=== PATIENT | male | born 1950 | race Caucasian/White ===

== ENCOUNTER 2020-01-07 11:30 | Emergency (ER) | payer OTHER, SELFPAY ==
[2020-01-07 11:36] VITALS: BP 124/67; PULSE 73; RESP 15; TEMP 36.2; O2SAT 100; BMI 23.7
[2020-01-07 12:08] LABS: Alanine Aminotransferase 19 IU/L (<50); Albumin 3.7 g/dL (3.5-5.0); Albumin Globulin Ratio 1.2 (1.0-2.8); Alkaline Phosphatase 58 U/L (38-126); Aspartate Aminotransferase 27 IU/L (17-59); BUN Creatinine Ratio 18.2 (6-22); Bilirubin Total 1.8 mg/dL (0.2-1.3); Blood Urea Nitrogen 10 mg/dL (9-20); Calcium 9.3 mg/dL (8.4-10.2); Carbon Dioxide 30 mmol/L (22-32); Chloride 86 mmol/L (98-107); Estimated Glomerular Filt Rate > 60.0 mL/min (>60); Globulin 3.2 g/dL (1.7-4.1); Glucose 125 mg/dL (80-110); HEMOLYSIS < 15 (0-50); Lipase 41 U/L (23-300); Potassium 3.5 mmol/L (3.4-5.1); Sodium 122 mmol/L (137-145); Total Protein 6.9 g/dL (6.3-8.2)
[2020-01-07 12:09] LABS: Prothrombin Time 11.6 SECONDS (10.1-12.7)
[2020-01-07 12:13] LABS: PTT Partial Thromboplastin Tim 30 SECONDS (26.4-36.2)
[2020-01-07 12:20] LABS: Add Manual Diff / Slide Review NO; Basophils Absolute Auto 100 /uL (0-100); Basophils Percent Auto 0.5 % (0-2); Eosinophils Absolute Auto 0 /uL (0-450); Eosinophils Percent Auto 0.1 % (2-4); Hematocrit 40.3 % (41-53); Hemoglobin 14.2 g/dL (13.5-17.5); Lymphocytes Absolute Auto 700 /uL (1100-4500); Lymphocytes Percent Auto 5.1 % (25-40); Mean Corpuscular HGB Conc 35.3 % (30-36); Mean Corpuscular Hemoglobin 33.8 PG (26-34); Mean Corpuscular Volume 95.7 fL (80-100); Monocytes Absolute Auto 600 /uL (0-900); Monocytes Percent Auto 4.2 % (3-14); Neutrophils Absolute Auto 12200 /uL (1500-7000); Neutrophils Percent Auto 90.1 % (50-75); Platelet Count 306 X10^3/uL (150-400); Red Blood Cell Count 4.21 X10^6/uL (4.5-5.9); Red Cell Distribution Width 13.1 % (11.6-14.8); White Blood Cell Count 13.5 X10^3/uL (4.5-11.0)
[2020-01-07 12:21] LABS: Procalcitonin 0.41 ng/mL (<0.5)
--- NOTE | 2020-01-07 12:51 | ED.SKABFB ---
HPI - Skin/Abscess/Foreign Bdy General Chief complaint: Skin/Abscess/Foreign Body Stated complaint: states left foot in infected Time Seen by Provider: 01/07/20 11:54 Source: patient Mode of arrival: Wheelchair Limitations: no limitations History of Present Illness HPI narrative: 69-year-old gentleman typically followed at the [facility] with a history of asthma, COPD, plaque psoriasis and hypertension presents with 6 days of increasing left pain. States he had severe itch about 6 nights ago he scratched it and the infection started shortly there after. It is becoming increasingly painful. He describes no fevers or chills. No chest pain, dyspnea, abdominal pain. Related Data Previous Rx's Medication Instructions Recorded budesonide-formoterol [Symbicort] 1 inh INH BID #1 inh 04/14/16 hydrochlorothiazide 25 mg PO QDAY #90 04/14/16 propranolol 20 mg PO TID #270 04/14/16 trazodone 50 mg PO QDAY #90 tab 04/14/16 simvastatin 20 mg PO HS #30 tab 09/08/16 amlodipine [Norvasc] 5 mg PO QDAY #90 tab 12/19/16 albuterol sulfate [Ventolin HFA] 1 puff INH QID #3 inh 12/29/16 loratadine 10 mg PO QDAY #30 tab 12/29/16 montelukast [Singulair] 10 mg PO QDAY #90 tab 12/29/16 levofloxacin 750 mg PO DAILY #10 tab 01/07/20 Allergies Allergy/AdvReac Type Severity Reaction Status Date / Time lisinopril [LISINOPRIL] Allergy Unknown Verified 01/07/20 11:41 pollen extracts Allergy Unknown Verified 01/07/20 11:41 [POLLEN EXTRACTS] Sulfa (Sulfonamide Allergy Unknown Verified 01/07/20 11:41 Antibiotics) [SULFA (SULFONAMIDE ANTIBIOTICS)] NICOTINE PATCH Allergy Unknown Uncoded 07/18/17 13:01 Review of Systems Review of Systems Narrative: Remainder of review of systems including constitutional, ENT, cardiovascular, respiratory, GI, , musculoskeletal, skin, neurologic and psychiatric systems reviewed and are unremarkable except as noted in HPI. Patient History Medical History (Updated 01/07/20 @ 17:10 by Iman oKo MD) Hypertension (Acute) Plaque psoriasis (Acute) Social History Smoking Status: Current every day smoker Smoking Status: Current every day smoker alcohol intake frequency: 0-2 drinks per day Substance Use Type: does not use Exam Narrative Exam Narrative: General: Disheveled, poor overall hygiene but states that he does have a home where he lives HEENT: Moist mucous membranes, normal sclera with reactive pupils, no cervical adenopathy Neck: No JVD, supple Respiratory: Lungs are clear to auscultation, no wheezing no rales no rhonchi. Full and symmetrical air movement Cardiac: Regular rate and rhythm no murmurs no bruits Abdomen: Soft nontender good bowel tones, no flank pain Skin: Very tanned, multiple bruises from thin skin, healed plaques from prior psoriasis Neurologic: Grossly neurologically intact with no obvious asymmetries or abnormalities Extremities: Left foot erythematous warm to the touch slight swelling over the dorsum beginning lymphangitic spread up the medial anterior flowers. No inguinal adenopathy Dramatic onychomycosis with nails thickened dystrophic and digging into the skin with severe dryness cracking and flaking of both feet Psych: Cooperative, appropriate insight and affect Initial Vital Signs Initial Vital Signs: Vital Signs Temperature 97.1 F L 01/07/20 11:36 Pulse Rate 73 01/07/20 11:36 Respiratory Rate 15 01/07/20 11:36 Blood Pressure 124/67 01/07/20 11:36 Pulse Oximetry 100 01/07/20 11:36 Course Orders Ordered: ED Orders 01/07/20 11:47 Complete Blood Count AUTO DIFF Stat Comprehensive Metabolic Panel Stat Lactate (Lactic Acid) Stat Lipase Stat Partial Thromboplastin Time Stat Procalcitonin Stat Prothrombin Time INR Stat 01/07/20 13:37 Blood Culture Stat 01/07/20 16:00 Basic Metabolic Panel Stat Lactate (Lactic Acid) Stat Discontinued Medications Sodium Chloride (Normal Saline 0.9%) 1,000 mls @ 1,000 mls/hr IV BOLUS ONE Stop: 01/07/20 14:05 Last Infusion: 01/07/20 16:16 Dose: 0 mls/hr Documented by: Admin: 01/07/20 14:01 Dose: 1,000 mls/hr Documented by: [place] Ceftriaxone Sodium/Dextrose (Rocephin) 2 gm in 50 mls @ 100 mls/hr IV NOW ONE Stop: 01/07/20 13:35 Last Infusion: 01/07/20 15:10 Dose: 0 mls/hr Documented by: Admin: 01/07/20 14:01 Dose: 100 mls/hr Documented by: [place] Vital Signs Vital signs: Vital Signs - 8 hr 01/07/20 11:36 01/07/20 12:56 01/07/20 13:00 Temperature 97.1 F L Pulse Rate 73 79 Respiratory Rate 15 Blood Pressure 124/67 130/64 Pulse Oximetry 100 99 01/07/20 16:23 Temperature Pulse Rate 78 Respiratory Rate 18 Blood Pressure 131/61 Pulse Oximetry 98 MDM - Skin/Abscess/Foreign Bdy Medical Records Attestation: I reviewed the patient's medical records. Lab Data Attestation: I reviewed the patient's lab results. Result diagrams: 01/07/20 11:47 01/07/20 16:00 Labs: Lab Results 01/07/20 01/07/20 01/07/20 Range/Units 11:47 11:47 11:47 WBC 13.5 H (4.5-11.0) X10^3/uL RBC 4.21 L (4.5-5.9) X10^6/uL Hgb 14.2 (13.5-17.5) g/dL Hct 40.3 L (41-53) % MCV 95.7 (80-100) fL MCH 33.8 (26-34) PG MCHC 35.3 (30-36) % RDW 13.1 (11.6-14.8) % Plt Count 306 (150-400) X10^3/uL Neut % (Auto) 90.1 H (50-75) % Lymph % (Auto) 5.1 L (25-40) % [place] % (Auto) 4.2 (3-14) % Eos % (Auto) 0.1 L (2-4) % Baso % (Auto) 0.5 (0-2) % Neut # (Auto) 65712 H (2671-4308) /uL Lymph # (Auto) 700 L (4985-0180) /uL [place] # (Auto) 600 (0-900) /uL Eos # (Auto) 0 (0-450) /uL Baso # (Auto) 100 (0-100) /uL PT 11.6 (10.1-12.7) SECONDS INR 1.0 (0.9-1.3) APTT 30 (26.4-36.2) SECONDS Sodium (137-145) mmol/L Potassium (3.4-5.1) mmol/L Chloride (98-107) mmol/L Carbon Dioxide (22-32) mmol/L BUN (9-20) mg/dL Creatinine (0.66-1.25) mg/dL Estimated GFR (>60) mL/min BUN/Creatinine Ratio (6-22) Glucose (80-110) mg/dL Lactate (0.7-2.1) mmol/L Calcium (8.4-10.2) mg/dL Total Bilirubin (0.2-1.3) mg/dL AST (17-59) IU/L ALT (<50) IU/L Alkaline Phosphatase (38-126) U/L Total Protein (6.3-8.2) g/dL Albumin (3.5-5.0) g/dL Globulin (1.7-4.1) g/dL Albumin/Globulin Ratio (1.0-2.8) Lipase (23-300) U/L Procalcitonin 0.41 (<0.5) ng/mL 01/07/20 01/07/20 01/07/20 Range/Units 11:47 11:47 13:37 WBC (4.5-11.0) X10^3/uL RBC (4.5-5.9) X10^6/uL Hgb (13.5-17.5) g/dL Hct (41-53) % MCV (80-100) fL MCH (26-34) PG MCHC (30-36) % RDW (11.6-14.8) % Plt Count (150-400) X10^3/uL Neut % (Auto) (50-75) % Lymph % (Auto) (25-40) % [place] % (Auto) (3-14) % Eos % (Auto) (2-4) % Baso % (Auto) (0-2) % Neut # (Auto) (3933-2014) /uL Lymph # (Auto) (7738-4400) /uL [place] # (Auto) (0-900) /uL Eos # (Auto) (0-450) /uL Baso # (Auto) (0-100) /uL PT (10.1-12.7) SECONDS INR (0.9-1.3) APTT (26.4-36.2) SECONDS Sodium 122 L (137-145) mmol/L Potassium 3.5 (3.4-5.1) mmol/L Chloride 86 L (98-107) mmol/L Carbon Dioxide 30 (22-32) mmol/L BUN 10 (9-20) mg/dL Creatinine 0.55 L (0.66-1.25) mg/dL Estimated GFR > 60.0 (>60) mL/min BUN/Creatinine Ratio 18.2 (6-22) Glucose 125 H (80-110) mg/dL Lactate 2.0 1.9 (0.7-2.1) mmol/L Calcium 9.3 (8.4-10.2) mg/dL Total Bilirubin 1.8 H (0.2-1.3) mg/dL AST 27 (17-59) IU/L ALT 19 (<50) IU/L Alkaline Phosphatase 58 (38-126) U/L Total Protein 6.9 (6.3-8.2) g/dL Albumin 3.7 (3.5-5.0) g/dL Globulin 3.2 (1.7-4.1) g/dL Albumin/Globulin Ratio 1.2 (1.0-2.8) Lipase 41 (23-300) U/L Procalcitonin (<0.5) ng/mL 01/07/20 01/07/20 Range/Units 16:00 16:00 WBC (4.5-11.0) X10^3/uL RBC (4.5-5.9) X10^6/uL Hgb (13.5-17.5) g/dL Hct (41-53) % MCV (80-100) fL MCH (26-34) PG MCHC (30-36) % RDW (11.6-14.8) % Plt Count (150-400) X10^3/uL Neut % (Auto) (50-75) % Lymph % (Auto) (25-40) % [place] % (Auto) (3-14) % Eos % (Auto) (2-4) % Baso % (Auto) (0-2) % Neut # (Auto) (1673-1859) /uL Lymph # (Auto) (3408-8570) /uL [place] # (Auto) (0-900) /uL Eos # (Auto) (0-450) /uL Baso # (Auto) (0-100) /uL PT (10.1-12.7) SECONDS INR (0.9-1.3) APTT (26.4-36.2) SECONDS Sodium 125 L (137-145) mmol/L Potassium 3.3 L (3.4-5.1) mmol/L Chloride 86 L (98-107) mmol/L Carbon Dioxide 35 H (22-32) mmol/L BUN 9 (9-20) mg/dL Creatinine 0.53 L (0.66-1.25) mg/dL Estimated GFR > 60.0 (>60) mL/min BUN/Creatinine Ratio 17.0 (6-22) Glucose 113 H (80-110) mg/dL Lactate 2.4 H (0.7-2.1) mmol/L Calcium 8.6 (8.4-10.2) mg/dL Total Bilirubin (0.2-1.3) mg/dL AST (17-59) IU/L ALT (<50) IU/L Alkaline Phosphatase (38-126) U/L Total Protein (6.3-8.2) g/dL Albumin (3.5-5.0) g/dL Globulin (1.7-4.1) g/dL Albumin/Globulin Ratio (1.0-2.8) Lipase (23-300) U/L Procalcitonin (<0.5) ng/mL Urine Dip Bedside Urine Glucose Negative Bedside Urine Bilirubin - Negative Bedside Urine Ketone - Negative Urine Specific [place] 1.015 Bedside Urine Occult Blood - Negative Bedside Urine pH 6.5 Bedside Urine Protein - Negative Bedside Urine Urobilinogen +/- 1mg Bedside Urine Nitrite - Negative Bedside Urine Leukocytes - Negative Esterase MDM Narrative Medical decision making narrative: 69-year-old gentleman significantly disheveled with dramatically excoriated feet with nails growing into edges of his feet. Developing left lower extremity cellulitis. Does have palpable pulses bilaterally but seems to have little insight overall in to the rest of his care. He is hyponatremic at 1:22 a.m., he takes hydrochlorothiazide so that may be contributing. Unexplained hyperbilirubinemia. Lactic acid is 2.0 without other signs and symptoms of sepsis. Will treat him with antibiotics fluids contact Podiatry and recheck blood work including sodium and lactic acid to see if he needs to be admitted or can be safely treated as an outpatient 1:10 Dr Harley, podiatry. Patient can be schedule for outpatient debridement of the toenails. 5:03 patient's lactate is beginning to climb slightly suggesting that discharge home would not be appropriate. Will continue fluid resuscitation and facilitate hospital admission for cellulitis of the left foot with concurrent mild hyponatremia and hypokalemia. After discussing with the patient he is adamant that he will not stay in the hospital. Discussed with him alternatives and possibilities and again he is adamant he will not stay in the hospital. Will ask him to sign out Against Medical Advice recognizing that this is up poor decision include result in significant worsening of his cellulitis. Encouraged him to come back and will also discharge him home with oral antibiotics Discharge Plan Departure Patient Disposition: Left Against Medical Advice Clinical Impression: Hyponatremia, Hypokalemia, Elevated lactic acid level Cellulitis Qualifiers: Site of cellulitis: extremity Site of cellulitis of extremity: lower extremity Laterality: left Qualified Code(s): L03.116 - Cellulitis of left lower limb Instructions: DI for Cellulitis -- Adult Activity Restrictions/Additional Instructions: I have strongly recommended that you stay in the hospital so that we can appropriately treat your foot infection with concerns that despite IV antibiotics already given the infection is worsening as you have been in the emergency department. Your potassium and sodium levels are also low. If you choose to leave I will prescribe antibiotics and also strongly encourage you to return with any increasing fevers, confusion, weakness or worsening redness pain or swelling in the foot. Prescriptions: New levofloxacin 750 mg tablet 750 mg PO DAILY Qty: 10 RF: 0 No Action trazodone 50 MG tablet 50 mg PO QDAY Qty: 90 RF: 3 hydrochlorothiazide 25 MG tablet 25 mg PO QDAY Qty: 90 RF: 3 propranolol 20 MG tablet 20 mg PO TID Qty: 270 RF: 3 budesonide-formoterol [Symbicort] 160 MCG/4.5 MCG HFA aerosol inhaler 1 inh INH BID Qty: 1 RF: 11 simvastatin 20 MG tablet 20 mg PO HS Qty: 30 RF: 5 amlodipine [Norvasc] 5 MG tablet 5 mg PO QDAY Qty: 90 RF: 1 montelukast [Singulair] 10 MG tablet 10 mg PO QDAY Qty: 90 RF: 0 albuterol sulfate [Ventolin HFA] 90 MCG/PUFF HFA aerosol inhaler 1 puff INH QID Qty: 3 RF: 3 loratadine 10 MG tablet 10 mg PO QDAY Qty: 30 RF: 2 Stand Alone Forms: Against Medical Advice
[2020-01-07 12:56] VITALS: PULSE 79; O2SAT 99
[2020-01-07 13:00] VITALS: BP 130/64
[2020-01-07 13:51] LABS: Reflexed Lactate in 2 Hours Y
[2020-01-07] MEDS: CEFTRIAXONE 2 GM/50 ML FROZ.PIGGY IV (14:01)
[2020-01-07] MEDS: SODIUM CHLORIDE 0.9% 1,000 ML 1000 ML IV (14:01)
[2020-01-07 14:17] LABS: Lactate 2HR (Lactic Acid Rflx) 1.9 mmol/L (0.7-2.1)
[2020-01-07 16:13] LABS: HEMOLYSIS < 15 (0-50); Potassium 3.3 mmol/L (3.4-5.1)
[2020-01-07 16:15] LABS: Blood Urea Nitrogen 9 mg/dL (9-20); Calcium 8.6 mg/dL (8.4-10.2); Carbon Dioxide 35 mmol/L (22-32); Chloride 86 mmol/L (98-107); Estimated Glomerular Filt Rate > 60.0 mL/min (>60); Glucose 113 mg/dL (80-110); Lactate (Lactic Acid) 2.4 mmol/L (0.7-2.1); Sodium 125 mmol/L (137-145)
[2020-01-07 16:23] VITALS: BP 131/61; PULSE 78; RESP 18; O2SAT 98
[2020-01-07 17:21] VITALS: BP 142/75; PULSE 83; RESP 20; O2SAT 97
[2020-01-07 18:04] LABS: Reflexed Lactate in 2 Hours Y
== END 2020-01-07 17:22 | disposition left against medical advice (07) ==
PROVIDERS: Emergency Provider Emergency Medicine
DX: L03.116 Cellulitis of left lower limb (principal); E87.1 Hypo-osmolality and hyponatremia; E87.6 Hypokalemia; R74.0 Nonspecific elevation of levels of transaminase and lactic acid dehydrogenase [LDH]
CPT/HCPCS: 36415; 80048; 80053; 81003; 83605; 83690; 84145; 85025; 85610; 85730; 87040; 96361; 96365; 99284; J0696

== ENCOUNTER 2020-01-17 09:37 | Emergency (ER) | payer OTHER, SELFPAY ==
--- NOTE | 2020-01-17 10:05 | ED_ITS ---
HPI - Extremity Problem General Chief complaint: Skin/Abscess/Foreign Body Stated complaint: Infection of left foot Time Seen by Provider: 01/17/20 09:41 Source: patient and family Mode of arrival: Ambulatory Limitations: no limitations History of Present Illness HPI Narrative: 69-year-old male former smoker with history of asthma, COPD and hypertension returns for evaluation of left foot cellulitis. He was seen and evaluated here a few days ago for, at that time, 6 days of increasing left foot pain. He denies any systemic findings such as fever, chills nor nausea or vomiting. At the time his left foot was warm to the touch, erythematous with lymphangitis. He was prescribed Levaquin and took meds as directed. He's had ongoing pain but no more redness or streaks. Admission was recommended given symptoms, exam, and abnormal labs, but he left AMA. He returns due to ongoing pain. Related Data Previous Rx's Medication Instructions Recorded budesonide-formoterol [Symbicort] 1 inh INH BID #1 inh 04/14/16 hydrochlorothiazide 25 mg PO QDAY #90 04/14/16 propranolol 20 mg PO TID #270 04/14/16 trazodone 50 mg PO QDAY #90 tab 04/14/16 simvastatin 20 mg PO HS #30 tab 09/08/16 amlodipine [Norvasc] 5 mg PO QDAY #90 tab 12/19/16 albuterol sulfate [Ventolin HFA] 1 puff INH QID #3 inh 12/29/16 loratadine 10 mg PO QDAY #30 tab 12/29/16 montelukast [Singulair] 10 mg PO QDAY #90 tab 12/29/16 levofloxacin 750 mg PO DAILY #10 tab 01/07/20 amoxicillin-pot clavulanate 1 tab PO BID #20 tab 01/17/20 [Augmentin] Allergies Allergy/AdvReac Type Severity Reaction Status Date / Time lisinopril [LISINOPRIL] Allergy Unknown Verified 01/17/20 10:12 pollen extracts Allergy Unknown Verified 01/17/20 10:12 [POLLEN EXTRACTS] Sulfa (Sulfonamide Allergy Unknown Verified 01/17/20 10:12 Antibiotics) [SULFA (SULFONAMIDE ANTIBIOTICS)] NICOTINE PATCH Allergy Unknown Uncoded 01/17/20 10:12 Review of Systems Constitutional Constitutional: Denies chills, Denies fatigue, Denies fever(s), Denies frequent falls, Denies lethargy and Denies weakness Eyes Eyes: Denies change in vision, Denies eye discharge, Denies irritation and Denies loss of vision ENT Ears, Nose, Mouth, and Throat: Denies change in voice, Denies dizziness, Denies neck pain, Denies sore throat and Denies throat swelling Cardiovascular Cardiovascular: Denies chest pain, Denies irregular heart rhythm, Denies lightheadedness, Denies palpitations, Denies dyspnea, Denies dyspnea on exertion and Denies orthopnea Respiratory Respiratory: Denies cough, Denies dyspnea, Denies dyspnea on exertion and Denies wheezing Gastrointestinal Gastrointestinal: Denies abdominal pain, Denies change in bowel habits, Denies diarrhea, Denies nausea and Denies vomiting Musculoskeletal Musculoskeletal: Denies neck pain and Denies numbness Comments: left foot pain Integumentary/Breasts Skin/Breast: Denies pruritus, Denies erythema, Denies rash, Reports skin pain and Denies wounds Neurologic Neurologic: Denies behavioral changes, Denies confusion, Denies dizziness, Denies frequent falls, Denies loss of vision, Denies numbness and Denies weakness Psychiatric Psychiatric: Denies anxiety, Denies behavioral changes, Denies confusion, Denies depression, Denies homicidal ideation and Denies suicidal ideation Endocrine Endocrine: Denies fatigue, Denies flushing and Denies palpitations Hematologic/Lymphatic Hematologic/Lymphatic: Denies easy bruising Allergic/Immunologic Allergic/Immunologic: Denies urticaria, Denies throat swelling and Denies wheezing Patient History Medical History Hypertension (Acute) Plaque psoriasis (Acute) Social History Smoking Status: Current every day smoker Smoking Status: Current every day smoker alcohol intake frequency: 0-2 drinks per day Substance Use Type: does not use Exam Narrative Exam Narrative: GENERAL: [69] year old patient appears older than stated age. Well-nourished, well-developed patient, in mild distress. HEAD: Atraumatic. Normocephalic. EYES: Pupils equal round and reactive. Extraocular motions intact. No scleral icterus. No injection or drainage. ENT: Nose without bleeding, purulent drainage. Throat without erythema, tonsillar hypertrophy or exudate. Airway patent. NECK: Trachea midline. Non tender CARDIOVASCULAR: Regular rate and rhythm without murmurs, gallops, or rubs. RESPIRATORY: Clear to auscultation. Breath sounds equal bilaterally. No wheezes, rales, or rhonchi. GASTROINTESTINAL: Abdomen soft, non-tender, nondistended. EXTREMITIES: No erythema, warmth or lymphangitis noted. No induration or fluctuance. No breaks in the skin. As noted previously, there is significant onychomycosis of multiple toes. No edema or joint tenderness. BACK: Nontender without deformity or crepitance. No flank tenderness. NEURO: AOx3. SKIN: No rash or erythema of visible areas Initial Vital Signs Initial Vital Signs: Vital Signs Pulse Rate 65 01/17/20 10:06 Blood Pressure 135/72 01/17/20 10:06 Pulse Oximetry 98 01/17/20 10:06 Course Orders Ordered: ED Orders 01/17/20 10:07 XR foot LT min 3V Stat 01/17/20 10:25 Basic Metabolic Panel Stat C-Reactive Protein Quant Stat Complete Blood Count AUTO DIFF Stat Erythrocyte Sedimentation Rate Stat Lactate (Lactic Acid) Stat Vital Signs Vital signs: Vital Signs - 8 hr 01/17/20 10:06 01/17/20 10:08 01/17/20 11:21 Temperature 98.1 F Pulse Rate 65 62 71 Respiratory Rate 18 Blood Pressure 135/72 135/71 142/81 H Pulse Oximetry 98 99 94 01/17/20 11:27 Temperature Pulse Rate 78 Respiratory Rate 12 Blood Pressure 135/72 Pulse Oximetry 96 MDM - Extremity (Nontraumatic) Lab Data Result diagrams: 01/17/20 10:25 01/17/20 10:25 Labs: Lab Results 01/17/20 01/17/20 01/17/20 Range/Units 10:25 10:25 10:25 WBC 7.9 (4.5-11.0) X10^3/uL RBC 4.33 L (4.5-5.9) X10^6/uL Hgb 14.6 (13.5-17.5) g/dL Hct 41.6 (41-53) % MCV 96.1 (80-100) fL MCH 33.7 (26-34) PG MCHC 35.1 (30-36) % RDW 12.9 (11.6-14.8) % Plt Count 410 H (150-400) X10^3/uL Neut % (Auto) 73.1 (50-75) % Lymph % (Auto) 14.2 L (25-40) % [place] % (Auto) 11.2 (3-14) % Eos % (Auto) 0.5 L (2-4) % Baso % (Auto) 1.0 (0-2) % Neut # (Auto) 5800 (1613-2559) /uL Lymph # (Auto) 1100 (4547-0310) /uL [place] # (Auto) 900 (0-900) /uL Eos # (Auto) 0 (0-450) /uL Baso # (Auto) 100 (0-100) /uL ESR 17 H (0-15) MM/HR Sodium 123 L (137-145) mmol/L Potassium 3.3 L (3.4-5.1) mmol/L Chloride 84 L (98-107) mmol/L Carbon Dioxide 33 H (22-32) mmol/L BUN 7 L (9-20) mg/dL Creatinine 0.71 (0.66-1.25) mg/dL Estimated GFR > 60.0 (>60) mL/min BUN/Creatinine Ratio 9.9 (6-22) Glucose 101 (80-110) mg/dL Lactate 1.8 (0.7-2.1) mmol/L Calcium 9.2 (8.4-10.2) mg/dL C-Reactive Protein 2.5 H (<1.0) mg/dL MDM Narrative Medical decision making narrative: Patient shows no signs of sepsis, has reassuring labs and based on his report and the description of the infection from his prior visit is significantly better this time than last. There is no indication for hospitalization. Repeat dose of antibiotics given ongoing sens ation of pain, extensive bedside discussion regarding the importance of follow- up. He does have a PCP at the [facility] and I have included contact information for on-call Podiatry. He has been given extensive return precautions and has had questions answered to his apparent satisfaction. Discharge Plan Departure Patient Disposition: Home Clinical Impression: Cellulitis Qualifiers: Site of cellulitis: extremity Site of cellulitis of extremity: lower extremity Laterality: left Qualified Code(s): L03.116 - Cellulitis of left lower limb Discharge Date/Time: 01/17/20 11:29 Instructions: DI for Cellulitis -- Adult Activity Restrictions/Additional Instructions: *You have been diagnosed with [left foot pain, possible mild cellulitis] *What to do: *Take medications as directed *Follow up with your primary care provider in 2-3 days, call for an appointment. Let them know you were seen in the Emergency Department and that we ask that you be seen in follow up *Return to ER if you should have any new, worsening or concerning symptoms, increasing pain, swelling, red streaks up your flowers, fever over 101 F or other bothersome symptoms Prescriptions: New amoxicillin-pot clavulanate [Augmentin] 875-125 mg tablet 1 tab PO BID Qty: 20 RF: 0 No Action trazodone 50 MG tablet 50 mg PO QDAY Qty: 90 RF: 3 hydrochlorothiazide 25 MG tablet 25 mg PO QDAY Qty: 90 RF: 3 propranolol 20 MG tablet 20 mg PO TID Qty: 270 RF: 3 budesonide-formoterol [Symbicort] 160 MCG/4.5 MCG HFA aerosol inhaler 1 inh INH BID Qty: 1 RF: 11 simvastatin 20 MG tablet 20 mg PO HS Qty: 30 RF: 5 amlodipine [Norvasc] 5 MG tablet 5 mg PO QDAY Qty: 90 RF: 1 montelukast [Singulair] 10 MG tablet 10 mg PO QDAY Qty: 90 RF: 0 albuterol sulfate [Ventolin HFA] 90 MCG/PUFF HFA aerosol inhaler 1 puff INH QID Qty: 3 RF: 3 loratadine 10 MG tablet 10 mg PO QDAY Qty: 30 RF: 2 levofloxacin 750 mg tablet 750 mg PO DAILY Qty: 10 RF: 0 Referrals: [facility] [Outside] Libby Encinas DPM [Physician] -
[2020-01-17 10:06] VITALS: BP 135/72; PULSE 65; O2SAT 98
--- NOTE | 2020-01-17 10:07 | DI.RAD.S_ITS ---
PROCEDURE: XR FOOT LT MIN 3V INDICATIONS: foot infection TECHNIQUE: 3 views of the foot were acquired. COMPARISON: None. FINDINGS: Bones: No fractures or dislocations. No discrete bony erosions or periosteal reaction. There is diffuse osteopenia. A bipartite medial sesamoid is noted with mild cystic change anteriorly. There is suggestion of pes planus. Soft tissues: There is dorsal soft tissue swelling in the forefoot. No tibiotalar joint effusion. Achilles tendon appears intact. IMPRESSION: 1. No definite radiographic evidence of osteomyelitis. If clinical concern persists, further evaluation may be obtained with MRI. Dictated by: Wing Frey M.D. on 01/17/2020 at 9:38 Approved by: Wing Frey M.D. on 01/17/2020 at 9:41
[2020-01-17 10:08] VITALS: BP 135/71; PULSE 62; RESP 18; TEMP 36.7; O2SAT 99; BMI 23.7
[2020-01-17 10:32] LABS: Add Manual Diff / Slide Review NO; Basophils Absolute Auto 100 /uL (0-100); Eosinophils Absolute Auto 0 /uL (0-450); Eosinophils Percent Auto 0.5 % (2-4); Hematocrit 41.6 % (41-53); Hemoglobin 14.6 g/dL (13.5-17.5); Lymphocytes Absolute Auto 1100 /uL (1100-4500); Lymphocytes Percent Auto 14.2 % (25-40); Mean Corpuscular HGB Conc 35.1 % (30-36); Mean Corpuscular Hemoglobin 33.7 PG (26-34); Mean Corpuscular Volume 96.1 fL (80-100); Monocytes Absolute Auto 900 /uL (0-900); Monocytes Percent Auto 11.2 % (3-14); Neutrophils Absolute Auto 5800 /uL (1500-7000); Neutrophils Percent Auto 73.1 % (50-75); Platelet Count 410 X10^3/uL (150-400); Red Blood Cell Count 4.33 X10^6/uL (4.5-5.9); Red Cell Distribution Width 12.9 % (11.6-14.8); White Blood Cell Count 7.9 X10^3/uL (4.5-11.0)
[2020-01-17 10:43] LABS: Lactate (Lactic Acid) 1.8 mmol/L (0.7-2.1)
[2020-01-17 10:45] LABS: BUN Creatinine Ratio 9.9 (6-22); Blood Urea Nitrogen 7 mg/dL (9-20); C-Reactive Protein Quant 2.5 mg/dL (<1.0); Calcium 9.2 mg/dL (8.4-10.2); Carbon Dioxide 33 mmol/L (22-32); Chloride 84 mmol/L (98-107); Estimated Glomerular Filt Rate > 60.0 mL/min (>60); Glucose 101 mg/dL (80-110); HEMOLYSIS < 15 (0-50); Potassium 3.3 mmol/L (3.4-5.1); Sodium 123 mmol/L (137-145)
--- NOTE | 2020-01-17 11:15 | PC.NURSE ---
patient came into to ED with complaints of redness and swelling in his left foot. He was seen on jan 06 for cellulitis and declined admission and went homoe with PO antibiotics. Today his leg is not swollen, hot or extremely red. He does not have a fever.
[2020-01-17 11:21] VITALS: BP 142/81; PULSE 71; O2SAT 94
[2020-01-17 11:27] VITALS: BP 135/72; PULSE 78; RESP 12; O2SAT 96
[2020-01-17 12:18] LABS: Erythrocyte Sedimentation Rate 17 MM/HR (0-15)
== END 2020-01-17 11:29 | disposition home or self-care (01) ==
PROVIDERS: Emergency Provider Emergency Medicine
DX: L03.116 Cellulitis of left lower limb (principal)
CPT/HCPCS: 73630; 80048; 83605; 85025; 85651; 86140; 99281; 99284